=== PATIENT | female | born 1930 | race Caucasian/White ===

== ENCOUNTER 2016-11-06 16:24 | Outpatient (CLI) | payer MEDICARE, BC | END 2016-11-06 16:25 | disposition home or self-care (01) | DX: M19.032 Primary osteoarthritis, left wrist (principal) ==

== ENCOUNTER 2016-12-01 09:07 | Outpatient (CLI) | payer MEDICARE, BC | END 2016-12-01 09:08 | disposition EMS.NT | DX: Z03.89 Encounter for observation for other suspected diseases and conditions ruled out (principal); W19.XXXA Unspecified fall, initial encounter; Y92.10 Unspecified residential institution as the place of occurrence of the external cause ==

== ENCOUNTER 2017-02-09 11:08 | Outpatient (CLI) | payer MEDICARE, BC ==
[2017-02-09 18:07] LABS: BASOPHILS % (AUTO) 0.5 %; EOSINOPHILS # (AUTO) 0.2 10^3/uL (0.0-0.7); EOSINOPHILS % (AUTO) 3.3 %; HCT - HEMATOCRIT 35.1 % (37.0-47.0); LYMPHOCYTES # (AUTO) 3.1 10^3/uL (1.5-3.5); LYMPHOCYTES % (AUTO) 46.6 %; MEAN CORPUSCULAR HEMOGLOBIN 31.3 pg (27.0-31.0); MEAN CORPUSCULAR HGB CONC 34.3 g/dL (32.0-36.0); MEAN CORPUSCULAR VOLUME 91.3 fL (81.0-99.0); MEAN PLATELET VOLUME 10.1 fL (7.9-10.8); MONOCYTES # (AUTO) 0.5 10^3/uL (0.0-1.0); MONOCYTES % (AUTO) 7.7 %; NEUTROPHILS # (AUTO) 2.8 10^3/uL (1.5-6.6); NEUTROPHILS % (AUTO) 41.9 %; NUCLEATED RED BLOOD CELLS AUTO 0.1 /100WBC; RED BLOOD COUNT 3.84 10^6/uL (4.20-5.40); RED CELL DISTRIBUTION WIDTH 13.2 % (12.0-15.0); UNCORRECTED WHITE BLOOD COUNT 6.6 x10^3/uL; WHITE BLOOD COUNT 6.6 x10^3/uL (4.8-10.8)
[2017-02-09 18:34] LABS: ALBUMIN/GLOBULIN RATIO 1.3 (1.0-2.2); BILIRUBIN,TOTAL 0.8 mg/dL (0.2-1.0); CALCIUM 9.3 mg/dL (8.5-10.3); CREATININE 1.1 mg/dL (0.4-1.0); TOTAL PROTEIN 7.4 g/dL (6.7-8.2)
[2017-02-09 19:49] LABS: PLATELET ESTIMATE, MANUAL NORMAL (130-450,000) (NORMAL); PLATELET MORPHOLOGY NORMAL APPEARANCE (NORMAL)
== END 2017-02-09 11:09 | disposition home or self-care (01) ==
LOC: LAB.F 11:08
PROVIDERS: ATTEND Internal Medicine
DX: C95.10 Chronic leukemia of unspecified cell type not having achieved remission (principal); R06.2 Wheezing; R60.0 Localized edema
CPT/HCPCS: 36415; 80053; 83880; 85025

== ENCOUNTER 2017-03-28 13:40 | Outpatient (CLI) | payer MEDICARE, BC | END 2017-03-28 13:41 | disposition EMS.NT | LOC: EMS 13:40 | PROVIDERS: ATTEND Surgery | DX: S09.93XA Unspecified injury of face, initial encounter (principal); W01.198A Fall on same level from slipping, tripping and stumbling with subsequent striking against other object, initial encounter; Y92.009 Unspecified place in unspecified non-institutional (private) residence as the place of occurrence of the external cause ==

== ENCOUNTER 2017-05-14 19:55 | Outpatient (CLI) | payer MEDICARE, BC | END 2017-05-14 19:56 | disposition EMS.NT | LOC: EMS 19:55 | PROVIDERS: ATTEND Surgery | DX: Z03.89 Encounter for observation for other suspected diseases and conditions ruled out (principal); W18.39XA Other fall on same level, initial encounter; Y92.099 Unspecified place in other non-institutional residence as the place of occurrence of the external cause ==

== ENCOUNTER 2017-05-23 10:12 | Outpatient (CLI) | payer MEDICARE, BC ==
--- NOTE | 2017-05-23 13:54 | XRAY Report ---
EXAM: LEFT FOOT RADIOGRAPHY EXAM DATE: 05/23/2017 10:54 AM. CLINICAL HISTORY: Fall with pain and bruising. COMPARISON: None. TECHNIQUE: 3 views. FINDINGS: Bones: Nondisplaced oblique fractures of the fourth and fifth metatarsal shafts. Old healed deformity of the distal fourth metatarsal, likely from remote prior trauma. Osteopenia. Joints: No dislocation. Degenerative changes at the first metatarsophalangeal joint. Soft Tissues: Soft tissue swelling adjacent to the fifth metatarsal. IMPRESSION: Nondisplaced oblique fractures of the fourth and fifth metatarsal shafts. [facility] Referring Provider Line: [phone] SITE ID: [id number]
--- NOTE | 2017-05-23 14:10 | XRAY Report ---
EXAM: LEFT HAND RADIOGRAPHY EXAM DATE: 05/23/2017 10:55 AM. CLINICAL HISTORY: Fall with pain and bruising. COMPARISON: None. TECHNIQUE: 3 views. FINDINGS: Bones: There is a nondisplaced fracture at the base of the fifth metacarpal. No additional fractures or dislocations are seen, noting that a ring obscures visualization of a portion of the proximal phal anx of the fourth finger. Joints: No dislocation. 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 Soft Tissues: Soft tissue swelling adjacent to the fifth metacarpal. IMPRESSION: Nondisplaced fracture at the base of the fifth metacarpal. [facility] Referring Provider Line: [phone] SITE ID: [id number]
--- NOTE | 2017-05-23 14:11 | XRAY Report ---
EXAM: LEFT WRIST RADIOGRAPHY EXAM DATE: 05/23/2017 10:55 AM. CLINICAL HISTORY: Fall with pain and bruising. COMPARISON: None. TECHNIQUE: 4 views. FINDINGS: Bones: There is a nondisplaced fracture at the base of the fifth metacarpal. No additional fractures. Joints: No dislocation. Narrowing of the radiocarpal articulation. Soft Tissues: Soft tissue swelling adjacent to the fifth metacarpal. IMPRESSION: Nondisplaced fracture of the base of the fifth metacarpal. [facility] Referring Provider Line: [phone] SITE ID: [id number]
--- NOTE | 2017-05-24 01:10 | XRAY Report ---
EXAM: LEFT ANKLE RADIOGRAPHY EXAM DATE: 05/23/2017 10:53 AM. CLINICAL HISTORY: Fall with pain and bruising. COMPARISON: None. TECHNIQUE: 3 views. FINDINGS: Bones: No fractures or bone lesions. Joints: Normal. No effusion. No subluxations. The ankle mortise is normally aligned. Soft Tissues: Diffuse ankle soft tissue swelling. Calcaneal bone spurs. IMPRESSION: 1. No evidence for acute fracture. 2. Diffuse ankle soft tissue swelling. [facility] Referring Provider Line: [phone] SITE ID: [id number]
== END 2017-05-23 10:13 | disposition home or self-care (01) ==
LOC: DI 10:12
PROVIDERS: ATTEND Internal Medicine
DX: S92.345A Nondisplaced fracture of fourth metatarsal bone, left foot, initial encounter for closed fracture (principal); S92.355A Nondisplaced fracture of fifth metatarsal bone, left foot, initial encounter for closed fracture; S62.347A Nondisplaced fracture of base of fifth metacarpal bone, left hand, initial encounter for closed fracture; M79.89 Other specified soft tissue disorders

== ENCOUNTER 2017-10-05 04:04 | Outpatient (CLI) | payer MEDICARE, BC | END 2017-10-05 04:05 | disposition critical access hospital (66) | LOC: EMS 04:04 | PROVIDERS: ATTEND Surgery | DX: S09.90XA Unspecified injury of head, initial encounter (principal); R53.1 Weakness; W06.XXXA Fall from bed, initial encounter; Y92.092 Bedroom in other non-institutional residence as the place of occurrence of the external cause | CPT/HCPCS: A0425; A0429 ==

== ENCOUNTER 2017-10-05 04:31 | Emergency (ER) | payer MEDICARE, BC ==
--- NOTE | 2017-10-05 05:06 | ED Physician Documentation ---
PD HPI Fall - Stated complaint Stated Complaint: GLF - Chief complaint Chief Complaint: Trauma Ch/Bk - History obtained from History obtained from: Patient, EMS - History of Present Illness Mechanism of injury: Lost balance Fall distance: Standing position Where injury occurred: Home Timing - onset: How many hours ago (1) Injury(ies) location: Head Associated symptoms: No: LOC, AMS, Neck pain, Nausea / vomiting - Additional information Additional information: The patient is an 87-year-old female who arrives via ambulance from [facility] where she fell getting out of bed about one hour prior to arrival. She landed on her buttocks, and hit the occipital region of her head on the bed frame. She denies loss of consciousness, and denies headache or neck pain. She denies nausea or vomiting. She denies chest pain or shortness of breath. She has a history of atrial fibrillation, but is not on anticoagulant medication. She normally uses a walker to assist with ambulation. Review of Systems Constitutional: denies: Fever Eyes: denies: Decreased vision Ears: denies: Tinnitus/ringing Nose: denies: Congestion Throat: denies: Sore throat Cardiac: denies: Chest pain / pressure, Palpitations Respiratory: denies: Dyspnea, Cough GI: denies: Abdominal Pain, Nausea, Vomiting : denies: Dysuria Skin: denies: Rash, Laceration (s) Musculoskeletal: denies: Neck pain, Back pain, Extremity pain Neurologic: reports: Head injury (Occipital scalp.). denies: Focal weakness, Numbness, Altered mental status, Headache, LOC PD PAST MEDICAL HISTORY - Past Medical History Past Medical History: Yes Cardiovascular: Atrial fibrillation Endocrine/Autoimmune: None Psych: Depression Musculoskeletal: Osteoporosis Other Past Medical History: RLS, edema to LE's - Past Surgical History Past Surgical History: Yes Ortho: Knee replacement - Present Medications Home Medications: Ambulatory Orders Medication Instructions Recorded Confirmed Calcium Carbonate/Vitamin D3 1 tab PO DAILY 10/05/17 10/05/17 [Calcium 600-Vit D3 400 Tablet] Docusate Sodium 1 cap PO DAILY 10/05/17 10/05/17 Fluoxetine HCl 1 cap PO DAILY 10/05/17 10/05/17 Gabapentin 1 tab PO BID 10/05/17 10/05/17 Gabapentin 600 mg PO DAILY 10/05/17 10/05/17 HYDROcod/ACETAM 5/325 [[place] 5/325] 0.5 tab PO BID 10/05/17 10/05/17 Metoprolol Succinate 25 mg PO DAILY 10/05/17 10/05/17 Multivitamin [Multivitamins] 1 cap PO DAILY 10/05/17 10/05/17 Ropinirole HCl 1 tab PO BID 10/05/17 10/05/17 diltiaZEM [Cardizem] 1 tab PO TID 10/05/17 10/05/17 - Allergies Allergies/Adverse Reactions: Allergies Allergy/AdvReac Type Severity Reaction Status Date / Time No Known Drug Allergies Allergy Verified 10/05/17 05:05 - Living Situation Living Arrangement: reports: Assisted living - Social History Does the pt smoke?: No Smoking Status: Never smoker Does the pt drink ETOH?: No Does the pt have substance abuse?: No - POLST Patient has POLST: Yes PD ED PE NORMAL - Vitals Vital signs reviewed: Yes (Initially hypertensive.) - General General: Alert and oriented X 3, Well developed/nourished - HEENT HEENT: PERRL, EOMI, Ears normal, Pharynx benign, Other (There is a small area of ecchymosis on the left occipital scalp. There is no break in the integument , and no bony step-off palpated.) - Neck Neck: No bony TTP, No adenopathy, No JVD - Cardiac Cardiac: RRR, Other (1/6 systolic murmur.) - Respiratory Respiratory: No respiratory distress, Clear bilaterally - Abdomen Abdomen: Soft, Non tender - Back Back: No spinal TTP - Derm Derm: No rash - Extremities Extremities: No calf tenderness / cord, Other (One plus pedal edema bilaterally. ) - Neuro Neuro: Alert and oriented X 3, No motor deficit, No sensory deficit Eye Opening: Spontaneous Motor: Obeys Commands Verbal: Oriented GCS Score: 15 Results - Vitals Vitals: Oxygen O2 Source Room air - EKG (time done) 04:43 Rate: Rate (enter#) (56) Rhythm: NSR [place]: Normal Intervals: Other (short [place] interval.) QRS: LVH Ischemia: Normal ST segments Computer interpretation: Agree with computer - Labs Labs: Laboratory Tests 10/05/17 10/05/17 10/05/17 05:10 05:15 05:15 WBC 7.2 RBC 3.56 L Hgb 11.3 L Hct 32.9 L MCV 92.5 MCH 31.6 H MCHC 34.2 RDW 13.6 Plt Count 178 MPV 9.6 Neut # Not Reportable Lymph # Not Reportable Terrell # Not Reportable Eos # Not Reportable Baso # Not Reportable Absolute Nucleated RBC Not Reportable Total Counted 100 Band Neuts % (Manual) 0 Reactive Lymphs % (Man) 16 Abnorm Lymph % (Manual) 0 Nucleated RBC % Not Reportable Neutrophils # (Manual) 2.6 Lymphocytes # (Manual) 4.1 H Monocytes # (Manual) 0.3 Eosinophils # (Manual) 0.2 Basophils # (Manual) 0.0 Differential Comment MANUAL DIFFERENTIAL Platelet Estimate NORMAL (130-450,000) Platelet Morphology 1+ LARGE PLATELETS RBC Morph Micro Appear NORMAL APPEARANCE Sodium 139 Potassium 3.8 Chloride 100 L Carbon Dioxide 26 Anion Gap 13.0 BUN 18 Creatinine 1.0 Estimated GFR (MDRD) 52 L Glucose 103 H Calcium 9.3 Total Bilirubin 0.9 AST 27 ALT 19 Alkaline Phosphatase 43 Troponin I Total Protein 7.2 Albumin 4.1 Globulin 3.1 Albumin/Globulin Ratio 1.3 Lipase 20 L Urine Color YELLOW Urine Clarity CLEAR Urine pH 6.0 Ur Specific [place] 1.020 Urine Protein NEGATIVE Urine Glucose (UA) NEGATIVE Urine Ketones NEGATIVE Urine Occult Blood NEGATIVE Urine Nitrite NEGATIVE Urine Bilirubin NEGATIVE Urine Urobilinogen 0.2 (NORMAL) Ur Leukocyte Esterase NEGATIVE Ur Microscopic Review NOT INDICATED Urine Culture Comments NOT INDICATED 10/05/17 05:15 WBC RBC Hgb Hct MCV MCH MCHC RDW Plt Count MPV Neut # Lymph # [place] # Eos # Baso # Absolute Nucleated RBC Total Counted Band Neuts % (Manual) Reactive Lymphs % (Man) Abnorm Lymph % (Manual) Nucleated RBC % Neutrophils # (Manual) Lymphocytes # (Manual) Monocytes # (Manual) Eosinophils # (Manual) Basophils # (Manual) Differential Comment Platelet Estimate Platelet Morphology RBC Morph Micro Appear Sodium Potassium Chloride Carbon Dioxide Anion Gap BUN Creatinine Estimated GFR (MDRD) Glucose Calcium Total Bilirubin AST ALT Alkaline Phosphatase Troponin I < 0.04 Total Protein Albumin Globulin Albumin/Globulin Ratio Lipase Urine Color Urine Clarity Urine pH Ur Specific [place] Urine Protein Urine Glucose (UA) Urine Ketones Urine Occult Blood Urine Nitrite Urine Bilirubin Urine Urobilinogen Ur Leukocyte Esterase Ur Microscopic Review Urine Culture Comments - Rads (name of study) Head CT w/o Radiology: Prelim report reviewed, EMP read contemporaneously, See rad report ( Age-related atrophic changes, without acute intracranial abnormality.) CT Cervical Spine Radiology: Prelim report reviewed, EMP read contemporaneously, See rad report ( No sign of cervical spine fracture.) PD MEDICAL DECISION MAKING - ED course Complexity details: reviewed old records, reviewed results, re-evaluated patient , considered differential, d/w patient ED course: The patient's presentation is significant for a fall with an occipital scalp contusion. Head CT reveals no evidence of intracranial abnormality, and CT of the cervical spine reveals no evidence of cervical spine fracture. CBC, chemistry panel, and urinalysis are unremarkable. Electrocardiogram reveals normal sinus rhythm without ischemic abnormalities, and troponin is normal. Following the above treatment, the patient demonstrated ability to ambulate in the hallway with the assistance of a walker. I discussed with her the results of her workup, the expected course of healing, symptomatic treatment and outpatient follow-up, as well as potentially worrisome signs or symptoms that should prompt reevaluation in the emergency department. Departure - Departure Disposition: 01 Home, Self Care Clinical Impression: Fall Qualifiers: Encounter type: initial encounter Qualified Code(s): W19.XXXA - Unspecified fall, initial encounter Scalp contusion Qualifiers: Encounter type: initial encounter Qualified Code(s): S00.03XA - Contusion of scalp, initial encounter Condition: Stable Instructions: ED Contusion Scalp Follow-Up: YUMIKO SWENSON MD [Physician No Access] - Comments: You can use Tylenol as needed for discomfort. Follow up with your primary physician within 1-2 weeks if not completely resolved. Return to the emergency department if increasing headache, persistent vomiting, or otherwise worsening symptoms. Discharge Date/Time: 10/05/17 09:41
[2017-10-05 05:17] LABS: BILIRUBIN,URINE NEGATIVE (NEGATIVE); GLUCOSE, URINE (UA) NEGATIVE (NEGATIVE); KETONES,URINE (UA) NEGATIVE (NEGATIVE); LEUKOCYTE ESTERASE, URINE NEGATIVE (NEGATIVE); NITRITE,URINE NEGATIVE (NEGATIVE); OCCULT BLOOD,URINE NEGATIVE (NEGATIVE); PROTEIN,URINE NEGATIVE (NEGATIVE); UROBILINOGEN,URINE 0.2 (NORMAL) E.U./dL (NORMAL)
[2017-10-05 05:23] LABS: BASOPHILS % (AUTO) 0.4 %; EOSINOPHILS % (AUTO) 2.6 %; HGB - HEMOGLOBIN 11.3 g/dL (12.0-16.0); LYMPHOCYTES % (AUTO) 49.3 %; MEAN CORPUSCULAR HEMOGLOBIN 31.6 pg (27.0-31.0); MEAN CORPUSCULAR HGB CONC 34.2 g/dL (32.0-36.0); MEAN CORPUSCULAR VOLUME 92.5 fL (81.0-99.0); MEAN PLATELET VOLUME 9.6 fL (7.9-10.8); MONOCYTES % (AUTO) 6.4 %; NEUTROPHILS % (AUTO) 41.3 %; PLT - PLATELET COUNT 178 10^3/uL (130-450); RED BLOOD COUNT 3.56 10^6/uL (4.20-5.40); RED CELL DISTRIBUTION WIDTH 13.6 % (12.0-15.0); WHITE BLOOD COUNT 7.2 x10^3/uL (4.8-10.8)
[2017-10-05 05:24] LABS: CLARITY,URINE CLEAR (CLEAR)
[2017-10-05 05:25] LABS: ABNORMAL LYMPHS % (MANUAL) 0 %; BAND NEUTROPHILS % (MANUAL) 0 %
[2017-10-05 05:36] LABS: ALBUMIN 4.1 g/dL (3.2-5.5); ALBUMIN/GLOBULIN RATIO 1.3 (1.0-2.2); BILIRUBIN,TOTAL 0.9 mg/dL (0.2-1.0); CALCIUM 9.3 mg/dL (8.5-10.3); TOTAL PROTEIN 7.2 g/dL (6.7-8.2)
[2017-10-05 05:46] LABS: EOSINOPHILS # (MANUAL) 0.2 10^3/uL (0-0.7); LYMPHOCYTES # (MANUAL) 4.1 10^3/uL (1.5-3.5); LYMPHOCYTES % (MANUAL) 41 %; MONOCYTES # (MANUAL) 0.3 10^3/uL (0.0-1.0); NEUTROPHILS # (MANUAL) 2.6 10^3/uL (1.5-6.6); NEUTROPHILS % (MANUAL) 36 %
[2017-10-05 05:47] LABS: DIFFERENTIAL COMMENT MANUAL DIFFERENTIAL; PLATELET ESTIMATE, MANUAL NORMAL (130-450,000) (NORMAL); PLATELET MORPHOLOGY 1+ LARGE PLATELETS (NORMAL); RBC MORPHOLOGY (MULTIPLE) NORMAL APPEARANCE (NORMAL)
--- NOTE | 2017-10-05 06:02 | CT Preliminary Report ---
Exam: CT HEAD W/O IMPRESSION: Generalized age-related cortical atrophic changes without evidence of acute intracranial abnormality. [facility] SITE ID: [id number]
--- NOTE | 2017-10-05 06:02 | CT Report ---
EXAM: CT HEAD EXAM DATE: 10/05/2017. CLINICAL HISTORY: Fall, head trauma COMPARISON: 05/06/2016. TECHNIQUE: Multiaxial CT images were obtained from the foramen magnum to the vertex. Reformats: Coron al. IV contrast: None. In accordance with CT protocol optimization, one or more of the following dose reduction techniques w ere utilized for this exam: automated exposure control, adjustment of mA and/or KV based on patient s ize, or use of iterative reconstructive technique. FINDINGS: Parenchyma: No intraparenchymal hemorrhage. No evidence of mass, midline shift, or CT findings of acu te infarction. [place]-white differentiation is distinct. Diffuse chronic microangiopathic white matter changes are evident. Extraaxial Spaces: Normal for age. No subdural or epidural collections identified. Ventricles: The ventricles and cortical sulci are enlarged, consistent with age-related tissue loss. Sinuses and orbits: Imaged paranasal sinuses, orbits, and mastoids show no significant abnormality. Bones: No evidence of fracture or calvarial defect. Other: There is a posterior scalp hematoma. IMPRESSION: Generalized age-related cortical atrophic changes without evidence of acute intracranial abnormality. [facility] Referring Provider Line: [phone] SITE ID: [id number]
--- NOTE | 2017-10-05 06:11 | CT Report ---
EXAM: CT CERVICAL SPINE WITHOUT CONTRAST DATE: 10/05/2017 05:44 AM. HISTORY: Fall onto head with right neck pain. COMPARISONS: Plain film radiographs 05/06/2016. TECHNIQUE: Thin-section axial images were acquired of the cervical spine without contrast. Post-proce ssing: Coronal and sagittal reformats. Other: None. In accordance with CT protocol optimization, one or more of the following dose reduction techniques w ere utilized for this exam: automated exposure control, adjustment of mA and/or KV based on patient s ize, or use of iterative reconstructive technique. FINDINGS: Alignment: There is 2 mm anterolisthesis of C4 on C5. There is 2 mm anterolisthesis of C7 on T1. Bones: No fracture or bone lesion. Interspace Levels/Facets: C1-C2: Moderate degenerative changes involving lateral masses. C2-C3: There is moderate right facet hypertrophy. No central canal or neural foraminal narrowing. C3-C4: There is moderate right facet hypertrophy. There is moderate right neural foraminal narrowing. C4-C5: There is mild right and moderate left facet hypertrophy. There is 2 mm anterolisthesis of C4 o n C5. There is moderate left neural foraminal narrowing. C5-C6: There is disk height loss without central canal narrowing. There is mild bilateral neural fora naman narrowing. C6-C7: There is disk height loss. There is a disk osteophyte complex without central canal narrowing. There is mild bilateral neural foraminal narrowing. C7-T1: There is moderate bilateral facet hypertrophy with mild bilateral neural foraminal narrowing. Musculature: Normal. No fatty atrophy. Other: The paravertebral and prevertebral soft tissues are unremarkable. The lung apices are clear. IMPRESSION: No evidence of cervical spine fracture. [facility] Referring Provider Line: [phone] SITE ID: [id number]
--- NOTE | 2017-10-05 06:11 | CT Preliminary Report ---
Exam: CT CERVICAL SPINE W/O IMPRESSION: No evidence of cervical spine fracture. [facility] SITE ID: [id number]
[2017-10-05 06:30] VITALS: BP 156/55
== END 2017-10-05 09:41 | disposition home or self-care (01) ==
LOC: EDUNIT# → ED 04:31
DX: S00.03XA Contusion of scalp, initial encounter (principal); W01.190A Fall on same level from slipping, tripping and stumbling with subsequent striking against furniture, initial encounter; Y92.013 Bedroom of single-family (private) house as the place of occurrence of the external cause; I48.91 Unspecified atrial fibrillation; M81.0 Age-related osteoporosis without current pathological fracture
CPT/HCPCS: 36415; 51701; 70450; 72125; 80053; 81001; 81003; 83690; 84484; 85025; 87086; 93005; 99283; 99284

== ENCOUNTER 2018-03-16 07:30 | Outpatient (CLI) | payer MEDICARE, BC | END 2018-03-16 07:31 | disposition critical access hospital (66) | LOC: EMS 07:30 | PROVIDERS: ATTEND Surgery | DX: R53.1 Weakness (principal) | CPT/HCPCS: A0425; A0429 ==

== ENCOUNTER 2018-03-16 07:57 | Emergency (ER) | payer MEDICARE, BC ==
--- NOTE | 2018-03-16 08:54 | ED Physician Documentation ---
History of Present Illness - Stated complaint Stated Complaint: WEAKNESS - Chief complaint Chief Complaint: Neuro - History obtained from History obtained from: Patient - History of Present Illness Timing: Today - Additonal information Additional information: 87-year-old female with a history of hypertension and afib not on anticoagulation has developed weakness. She is unable to get up out of her recliner this morning. She states that recently she will have some difficulty getting out and sometimes requires help today she was particularly weak. She will sometimes get help to go down to the dining room in a wheelchair. She usually uses a walker. She is unaware of any specifics regarding the murmur. Review of Systems Constitutional: reports: Fatigue. denies: Fever, Chills, Myalgias Eyes: denies: Decreased vision Ears: denies: Ear pain Nose: denies: Rhinorrhea / runny nose, Congestion Throat: denies: Sore throat Cardiac: denies: Chest pain / pressure, Palpitations Respiratory: denies: Dyspnea, Cough GI: denies: Abdominal Pain, Nausea, Vomiting, Constipation, Diarrhea : denies: Dysuria, Frequency Skin: denies: Rash Musculoskeletal: denies: Neck pain, Back pain, Extremity pain Neurologic: reports: Generalized weakness. denies: Focal weakness, Numbness, Confused, Headache, Head injury, LOC PD PAST MEDICAL HISTORY - Past Medical History Cardiovascular: Atrial fibrillation Endocrine/Autoimmune: None Psych: Depression Musculoskeletal: Osteoporosis - Past Surgical History Past Surgical History: Yes Ortho: Knee replacement /[employer]: section - Present Medications Home Medications: Ambulatory Orders Medication Instructions Recorded Confirmed Calcium Carbonate/Vitamin D3 1 tab PO DAILY 10/05/17 10/05/17 [Calcium 600-Vit D3 400 Tablet] Docusate Sodium 1 cap PO DAILY 10/05/17 10/05/17 Fluoxetine HCl 1 cap PO DAILY 10/05/17 10/05/17 Gabapentin 1 tab PO BID 10/05/17 10/05/17 Gabapentin 600 mg PO DAILY 10/05/17 10/05/17 HYDROcod/ACETAM 5/325 [[place] 5/325] 0.5 tab PO BID 10/05/17 10/05/17 Metoprolol Succinate 25 mg PO DAILY 10/05/17 10/05/17 Multivitamin [Multivitamins] 1 cap PO DAILY 10/05/17 10/05/17 Ropinirole HCl 1 tab PO BID 10/05/17 10/05/17 diltiaZEM [Cardizem] 1 tab PO TID 10/05/17 10/05/17 Carbidopa/Levodopa 0.5 tab PO TID #30 tablet 03/16/18 [Carbidopa-Levodopa 25-100 Tab] - Allergies Allergies/Adverse Reactions: Allergies Allergy/AdvReac Type Severity Reaction Status Date / Time No Known Drug Allergies Allergy Verified 10/05/17 05:05 - Social History Does the pt smoke?: No Smoking Status: Never smoker Does the pt drink ETOH?: No Does the pt have substance abuse?: No - Immunizations Immunizations: Other immun current - POLST Patient has POLST: Yes PD ED PE NORMAL - Vitals Vital signs reviewed: Yes (hypertensive with wide pulse pressure) - General General: Alert and oriented X 3, No acute distress, Well developed/nourished, Other (There is the sad masked facies of Parkinsons ) - HEENT HEENT: Atraumatic, PERRL, EOMI - Neck Neck: Supple, no meningeal sign, No bony TTP - Cardiac Cardiac: RRR, Other (3/6 holosystolic murmer at LSB ) - Respiratory Respiratory: No respiratory distress, Clear bilaterally - Abdomen Abdomen: Soft, Non tender - Back Back: No CVA TTP, No spinal TTP - Derm Derm: Normal color, Warm and dry, No rash - Extremities Extremities: No deformity, No edema - Neuro Neuro: Alert and oriented X 3, 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 There is more profound rigidity to the LE bilaterally. There is a tremor present and finger to thumb movements are jerky and slow. There is stiffening of the neck. ) Eye Opening: Spontaneous Motor: Obeys Commands Verbal: Oriented GCS Score: 15 - Psych Psych: Normal mood, Normal affect Results - Vitals Vitals: Vital Signs - 24 hr 03/16/18 03/16/18 03/16/18 08:00 09:57 11:19 Temperature 36.3 C L 36.4 C L Heart Rate 60 55 L 56 L Respiratory 16 16 17 Rate Blood Pressure 154/54 H 134/70 H 147/54 H O2 Saturation 96 96 97 03/16/18 13:32 Temperature Heart Rate 60 Respiratory 15 Rate Blood Pressure 170/51 H O2 Saturation 97 Oxygen O2 Source Room air - EKG (time done) 0858 Rate: Rate (enter#) (56) Rhythm: NSR Intervals: Prolonged VA QRS: LVH Compare to prior EKG: Changed from prior EKG (SPT10-05-17 VA interval has increased) Computer interpretation: Agree with computer - Labs Labs: Laboratory Tests 03/16/18 03/16/18 03/16/18 08:15 08:15 08:15 WBC 6.6 RBC 3.74 L Hgb 11.8 L Hct 34.8 L MCV 93.1 MCH 31.5 H MCHC 33.8 RDW 13.8 Plt Count 189 MPV 10.6 Neut # (Auto) 2.6 Lymph # (Auto) 3.4 [place] # (Auto) 0.4 Eos # (Auto) 0.2 Baso # (Auto) 0.0 Absolute Nucleated RBC 0.01 Nucleated RBC % 0.1 Sodium 139 Potassium 3.7 Chloride 104 Carbon Dioxide 26 Anion Gap 9.0 BUN 17 Creatinine 1.0 Estimated GFR (MDRD) 52 L Glucose 116 H Calcium 8.9 Total Bilirubin 1.3 H AST 42 ALT 18 Alkaline Phosphatase 48 Troponin I 0.06 Total Protein 6.9 Albumin 3.5 Globulin 3.4 Albumin/Globulin Ratio 1.0 Lipase 23 Urine Color Urine Clarity Urine pH Ur Specific [place] Urine Protein Urine Glucose (UA) Urine Ketones Urine Occult Blood Urine Nitrite Urine Bilirubin Urine Urobilinogen Ur Leukocyte Esterase Ur Microscopic Review Urine Culture Comments 03/16/18 08:45 WBC RBC Hgb Hct MCV MCH MCHC RDW Plt Count MPV Neut # (Auto) Lymph # (Auto) [place] # (Auto) Eos # (Auto) Baso # (Auto) Absolute Nucleated RBC Nucleated RBC % Sodium Potassium Chloride Carbon Dioxide Anion Gap BUN Creatinine Estimated GFR (MDRD) Glucose Calcium Total Bilirubin AST ALT Alkaline Phosphatase Troponin I Total Protein Albumin Globulin Albumin/Globulin Ratio Lipase Urine Color YELLOW Urine Clarity CLEAR Urine pH 7.0 Ur Specific [place] 1.010 Urine Protein NEGATIVE Urine Glucose (UA) NEGATIVE Urine Ketones NEGATIVE Urine Occult Blood NEGATIVE Urine Nitrite NEGATIVE Urine Bilirubin NEGATIVE Urine Urobilinogen 1 (NORMAL) Ur Leukocyte Esterase NEGATIVE Ur Microscopic Review NOT INDICATED Urine Culture Comments NOT INDICATED - Rads (name of study) 2 veiw chest Radiology: Prelim report reviewed (Impression: 1. Enlarged cardiac silhouette could be due to cardiomegaly, pericardial effusion or magnification from AP technique. No focal consolidation evident.), EMP read indepedently, See rad report Procedures - IVC sono (time) 0840 Bedside IVC sono: IVC measures (cm) (1.35), IVC collapsed c insp (cm) (0.81), Dehydration (minimal at est<0.5liter) PD MEDICAL DECISION MAKING - ED course Complexity details: reviewed results, re-evaluated patient, considered differential, d/w patient ED course: 87-year-old female with a murmur of aortic stenosis has developed weakness. She is minimally dehydrated and is given intravenous saline. This helps some but it is apparent the patient is nearly frozen in her parkinson like state and she is administered PO carbadopa levadopa. This takes some time to be effective and is most notable in the upper ext bilaterally with smoothing and of the gross movements and she is now able to perform finger to thumb rapidly bilaterally. There is more facial expression present. She is able to stand but with a shuffling gait and with assistance. She has had a rapid decline in the last week after a decline more slowly over the past several years. She appears to have some form of Parkinson's and I am saying the improvement with the carbidopa/levadopa is positive and we will start her on a dose regularly and have her follow up with her PMD in [place]. - Sepsis Event Vital Signs: Vital Signs - 24 hr 03/16/18 03/16/18 03/16/18 08:00 09:57 11:19 Temperature 36.3 C L 36.4 C L Heart Rate 60 55 L 56 L Respiratory 16 16 17 Rate Blood Pressure 154/54 H 134/70 H 147/54 H O2 Saturation 96 96 97 03/16/18 13:32 Temperature Heart Rate 60 Respiratory 15 Rate Blood Pressure 170/51 H O2 Saturation 97 Oxygen O2 Source Room air Departure - Departure Disposition: 01 Home, Self Care Clinical Impression: Parkinson's disease Condition: Stable Instructions: Parkinson Disease Dc Follow-Up: Your, doctor [Other] Prescriptions: Carbidopa/Levodopa [Carbidopa-Levodopa 25-100 Tab] 0.5 tab PO TID #30 tablet Comments: Today it looks like you have Parkinson's and we have initiated treatment with a low dose of Carbidopa/levadopa. You will need to increase this medication eventually. Follow up with your primary care doctor for further evaluation and referral to a neurologist.
[2018-03-16] MEDS ORDERED: SODIUM CHLORIDE 0.9% 1,000 ML IV ONE (08:56)
[2018-03-16 08:58] LABS: BASOPHILS % (AUTO) 0.6 %; EOSINOPHILS # (AUTO) 0.2 10^3/uL (0.0-0.7); EOSINOPHILS % (AUTO) 2.7 %; HGB - HEMOGLOBIN 11.8 g/dL (12.0-16.0); LYMPHOCYTES # (AUTO) 3.4 10^3/uL (1.5-3.5); LYMPHOCYTES % (AUTO) 51.3 %; MEAN CORPUSCULAR HEMOGLOBIN 31.5 pg (27.0-31.0); MEAN CORPUSCULAR HGB CONC 33.8 g/dL (32.0-36.0); MEAN CORPUSCULAR VOLUME 93.1 fL (81.0-99.0); MEAN PLATELET VOLUME 10.6 fL (7.9-10.8); MONOCYTES # (AUTO) 0.4 10^3/uL (0.0-1.0); MONOCYTES % (AUTO) 6.6 %; NEUTROPHILS # (AUTO) 2.6 10^3/uL (1.5-6.6); NEUTROPHILS % (AUTO) 38.8 %; PLT - PLATELET COUNT 189 10^3/uL (130-450); RED BLOOD COUNT 3.74 10^6/uL (4.20-5.40); RED CELL DISTRIBUTION WIDTH 13.8 % (12.0-15.0); WHITE BLOOD COUNT 6.6 x10^3/uL (4.8-10.8)
[2018-03-16 09:14] LABS: ALBUMIN 3.5 g/dL (3.2-5.5); BILIRUBIN,TOTAL 1.3 mg/dL (0.2-1.0); CALCIUM 8.9 mg/dL (8.5-10.3); TOTAL PROTEIN 6.9 g/dL (6.7-8.2)
--- NOTE | 2018-03-16 09:33 | XRAY Report ---
Procedure Date: 03/16/2018 Accession Number: [id number] / [id number] Procedure: XR - Chest 2 View X-Ray CPT Code: 06826 FULL RESULT: EXAM: CHEST RADIOGRAPHY EXAM DATE: 03/16/2018 09:14 AM. CLINICAL HISTORY: Weakness. COMPARISON: CHEST 2 VIEW PA/LAT 05/06/2016. TECHNIQUE: 2 views. FINDINGS: Lungs/Pleura: No focal opacities evident. No pleural effusion. No pneumothorax. Normal volumes. Mediastinum: Enlarged cardiac silhouette. Other: Right glenohumeral joint degenerative changes. Diffuse osteopenia. Prior midthoracic spine compression fracture with [id number] anterior wedging. IMPRESSION: 1. Enlarged cardiac silhouette could be due to cardiomegaly, pericardial effusion or magnification from AP technique. 2. No focal consolidation evident. [facility]
[2018-03-16 12:00] LABS: BILIRUBIN,URINE NEGATIVE (NEGATIVE); GLUCOSE, URINE (UA) NEGATIVE (NEGATIVE); KETONES,URINE (UA) NEGATIVE (NEGATIVE); LEUKOCYTE ESTERASE, URINE NEGATIVE (NEGATIVE); NITRITE,URINE NEGATIVE (NEGATIVE); OCCULT BLOOD,URINE NEGATIVE (NEGATIVE); PROTEIN,URINE NEGATIVE (NEGATIVE); UROBILINOGEN,URINE 1 (NORMAL) E.U./dL (NORMAL)
[2018-03-16 12:03] LABS: CLARITY,URINE CLEAR (CLEAR)
[2018-03-16] MEDS ORDERED: CARBIDOPA/LEVODOPA 25 MG/250 MG TABLET PO STA (13:07)
[2018-03-16 13:32] VITALS: BP 170/51
== END 2018-03-16 16:00 | disposition home or self-care (01) ==
LOC: EDUNIT# → ED 07:57
DX: G20 Parkinson's disease (principal); E86.0 Dehydration; R94.31 Abnormal electrocardiogram [ECG] [EKG]; I35.0 Nonrheumatic aortic (valve) stenosis; I10 Essential (primary) hypertension
CPT/HCPCS: 36415; 71046; 80053; 81003; 83690; 84484; 85025; 93005; 96360; 99284; A9270; 81001; 87086

== ENCOUNTER 2018-08-27 11:11 | Outpatient (CLI) | payer MEDICARE, BC ==
--- NOTE | 2018-08-27 15:05 | CT Report ---
Reason: SYNCOPE AND COLLAPSE Procedure Date: 08/27/2018 Accession Number: [id number] / [id number] Procedure: CT - Head W/O CPT Code: FULL RESULT: EXAM: CT HEAD WITHOUT CONTRAST EXAM DATE: 08/27/2018 12:24 PM. CLINICAL HISTORY: Syncope and collapse. COMPARISON: 10/05/2017. TECHNIQUE: Multiaxial CT images were obtained from the foramen magnum to the vertex. Reformats: Sagittal and coronal. IV contrast: None. In accordance with CT protocol optimization, one or more of the following dose reduction techniques were utilized for this exam: automated exposure control, adjustment of mA and/or KV based on patient size, or use of iterative reconstructive technique. FINDINGS: Parenchyma: No intraparenchymal hemorrhage. No evidence of mass, midline shift, or CT findings of infarction. Medrano-white differentiation is distinct. Hypodensities noted in the periventricular white matter consistent with microvascular ischemic change. Extraaxial Spaces: Prominent but normal for age consistent with aging appropriate atrophy. No subdural or epidural collections identified. Ventricles: Normal in size and position. Sinuses and Orbits: Imaged paranasal sinuses, orbits show no significant abnormality. 1 nonspecific air-fluid level is noted within the inferiormost air cell left mastoid. Bones: No evidence of fracture or calvarial defect. Other: None. IMPRESSION: 1. Aging related changes. No evidence of acute infarction, intracranial hemorrhage or abnormal extra-axial fluid collection. 2. Nonspecific mastoid air cell disease on the right. RADIA
== END 2018-08-27 11:12 | disposition home or self-care (01) ==
LOC: DI 11:11
PROVIDERS: ATTEND Internal Medicine
DX: I35.0 Nonrheumatic aortic (valve) stenosis (principal); R55 Syncope and collapse; I07.1 Rheumatic tricuspid insufficiency
CPT/HCPCS: 70450; 93306

== ENCOUNTER 2019-04-15 21:04 | Emergency (ER) | payer MEDICARE, BC ==
--- NOTE | 2019-04-15 21:55 | XRAY Report ---
Reason: pain and swelling s/p fall Procedure Date: 04/15/2019 Accession Number: [id number] / [id number] Procedure: XR - Wrist 4 View LT CPT Code: FULL RESULT: EXAM: LEFT WRIST RADIOGRAPHY EXAM DATE: 04/15/2019 09:32 PM. CLINICAL HISTORY: Pain and swelling s/p fall. COMPARISON: WRIST 4 VIEW LT 05/23/2017 10:24 AM. TECHNIQUE: 3 views. FINDINGS: Bones: An acute displaced transverse intra-articular fracture is seen through distal left radius with mild impaction between fracture fragments. No angulation. Joints: Radiocarpal joints are well aligned. Soft Tissues: Moderate soft tissue swelling is seen overlying the fracture site. IMPRESSION: An acute displaced transverse intra-articular fracture through distal left radius with mild impaction. RADIA
--- NOTE | 2019-04-16 00:43 | ED Physician Documentation ---
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 she is right hand dominant Review of Systems Skin: reports: Reviewed and negative Musculoskeletal: reports: Extremity pain, Joint pain, Extremity swelling, Joint swelling. 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 SYSTEMS: section - Present Medications Home Medications: Ambulatory Orders Medication Instructions Recorded Confirmed Docusate Sodium 100 mg PO DAILY 10/05/17 10/05/17 Fluoxetine HCl 20 mg PO DAILY 10/05/17 10/05/17 Gabapentin 600 mg PO PRN PRN 10/05/17 10/05/17 HYDROcod/ACETAM 5/325 [[place] 5/325] 1 tab PO DAILY PRN 10/05/17 10/05/17 Metoprolol Succinate 25 mg PO DAILY 10/05/17 10/05/17 [id number] [Cardizem] 30 mg PO TID 10/05/17 10/05/17 Carbidopa/Levodopa 1 tab PO BID 04/15/19 [Carbidopa-Levodopa 25-100 Tab] Metoprolol Succinate 25 mg PO DAILY 04/15/19 04/15/19 HYDROcod/ACETAM 5/325 [[place] 5/325] 1 ea PO Q6H PRN #15 tablet 04/16/19 - Allergies Allergies/Adverse Reactions: Allergies Allergy/AdvReac Type Severity Reaction Status Date / Time No Known Drug Allergies Allergy Verified 04/15/19 21:12 - Social History Does the pt smoke?: No Smoking Status: Never smoker Does the pt drink ETOH?: No Does the pt have substance abuse?: No - Immunizations Immunizations: Other immun current - POLST Patient has POLST: Yes PD ED PE NORMAL - Vitals Vital signs reviewed: Yes - General General: Alert and oriented X 3, No acute distress, Well developed/nourished - Neuro Neuro: No motor deficit, No sensory deficit PD ED PE EXPANDED - Extremities Extremities: Deformity, Tenderness, Limited ROM, Swelling, Left wrist Results - Vitals Vitals: Oxygen O2 Source Room air - Rads (name of study) left wrist xrays Radiology: Prelim report reviewed, See rad report Procedures - Splint (location) Upper extremity left Splint applied by: Tech Type of splint: Fiberglass, Sugar tong Other: Patient tolerated well, No complications, Neurovascular intact, Good alignment, Sling provided PD MEDICAL DECISION MAKING - ED course Complexity details: reviewed results, re-evaluated patient, considered differ ential, d/w patient, d/w family Departure - Departure Disposition: 01 Home, Self Care Clinical Impression: Wrist fracture Condition: Good Instructions: ED Sling, ED Splint Care Fiberglass, ED Fx Wrist General Follow-Up: Je Quiñones MD [Provider Admit Priv/Credential] - (3-5 days) Prescriptions: HYDROcod/ACETAM 5/325 [[place] 5/325] 1 ea PO Q6H PRN #15 tablet PRN Reason: Pain Discharge Date/Time: 04/16/19 01:33
[2019-04-16] MEDS ORDERED: HYDROcod/ACETAM 5/325 MG TABLET PO STA (00:58)
[2019-04-16 01:32] VITALS: BP 155/56
== END 2019-04-16 01:33 | disposition home or self-care (01) ==
LOC: ED 21:04
DX: S52.572A Other intraarticular fracture of lower end of left radius, initial encounter for closed fracture (principal); W01.0XXA Fall on same level from slipping, tripping and stumbling without subsequent striking against object, initial encounter; Y93.89 Activity, other specified; Y92.009 Unspecified place in unspecified non-institutional (private) residence as the place of occurrence of the external cause
CPT/HCPCS: 29125; 73110; 99283; A9270

== ENCOUNTER 2019-04-20 07:51 | Outpatient (CLI) | payer MEDICARE, BC | END 2019-04-20 07:52 | disposition EMS.NT | LOC: EMS 07:51 | PROVIDERS: ATTEND Surgery | DX: Z03.89 Encounter for observation for other suspected diseases and conditions ruled out (principal) ==

== ENCOUNTER 2019-04-25 03:07 | Outpatient (CLI) | payer MEDICARE, BC | END 2019-04-25 03:08 | disposition EMS.NT | LOC: EMS 03:07 | PROVIDERS: ATTEND Surgery | DX: Z03.89 Encounter for observation for other suspected diseases and conditions ruled out (principal) ==

== ENCOUNTER 2019-05-13 12:40 | Outpatient (CLI) | payer MEDICARE, BC | END 2019-05-13 12:41 | disposition critical access hospital (66) | LOC: EMS 12:40 | PROVIDERS: ATTEND Surgery | DX: R41.82 Altered mental status, unspecified (principal) | CPT/HCPCS: A0425; A0429 ==

== ENCOUNTER 2019-05-13 13:06 | Emergency (ER) | payer MEDICARE, BC ==
--- NOTE | 2019-05-13 13:22 | ED Physician Documentation ---
History of Present Illness - Stated complaint Stated Complaint: ALOC - Chief complaint Chief Complaint: Neuro - Additonal information Additional information: This is an 88-year-old female with history of atrial fibrillation and Parkinson's, who lives at [facility], who was brought in due to somnolence. History is provided by her daughter, as patient is poorly responsive. She was reportedly her normal self at 9 AM, and she was found around half hour ago in her home she was somnolent and difficult to arouse. It did not appear that she fell, it sounds like she was sitting when she was found and it is unclear what precipitated this change in her mental status. Her daughter did state that she fell within the last week, and she did have some mild headache, but she never received a CT scan of her head. She is on Vicodin occasionally, but her daughter states that she takes this only once a day at most, and does not think she received it today. She does take gabapentin for restless legs. Review of Systems Unable to obtain: Unresponsive PD PAST MEDICAL HISTORY - Past Medical History Past Medical History: Yes Cardiovascular: Atrial fibrillation Respiratory: None Neuro: None Endocrine/Autoimmune: None GI: None MICA PATCHER: None : None HEENT: None Psych: Depression Musculoskeletal: Osteoporosis Derm: None - Past Surgical History Past Surgical History: Yes Ortho: Knee replacement /MICA PATCHER: section - Present Medications Home Medications: Ambulatory Orders Medication Instructions Recorded Confirmed Docusate Sodium 100 mg PO DAILY 10/05/17 10/05/17 Fluoxetine HCl 20 mg PO DAILY 10/05/17 10/05/17 Gabapentin 600 mg PO PRN PRN 10/05/17 10/05/17 HYDROcod/ACETAM 5/325 [[place] 5/325] 1 tab PO DAILY PRN 10/05/17 10/05/17 Metoprolol Succinate 25 mg PO DAILY 10/05/17 10/05/17 [id number] [Cardizem] 30 mg PO TID 10/05/17 10/05/17 Carbidopa/Levodopa 1 tab PO BID 04/15/19 [Carbidopa-Levodopa 25-100 Tab] Metoprolol Succinate 25 mg PO DAILY 04/15/19 04/15/19 HYDROcod/ACETAM 5/325 [[place] 5/325] 1 ea PO Q6H PRN #15 tablet 04/16/19 - Allergies Allergies/Adverse Reactions: Allergies Allergy/AdvReac Type Severity Reaction Status Date / Time No Known Drug Allergies Allergy Verified 05/13/19 13:08 - Social History Does the pt smoke?: No Smoking Status: Never smoker Does the pt drink ETOH?: No Does the pt have substance abuse?: No - Immunizations Immunizations: Other immun current - POLST Patient has POLST: Yes PD ED PE NORMAL - Vitals Vital signs reviewed: Yes - General General: Other (Somnolent, When I open her eyes she does track, and with some repeated verbal stimuli she opens eyes and moves. She does not speak.) - HEENT HEENT: Atraumatic, PERRL, Other (Pupils 4mm and reactive bilaterally) - Neck Neck: Other (Atraumatic, no obvious tenderness, no step-offs.) - Cardiac Cardiac: Other (Irregularly irregular rhythm, regular rate.) - Respiratory Respiratory: No respiratory distress, Clear bilaterally - Abdomen Abdomen: Soft, Non tender, Non distended - Neuro Neuro: Other (Somnolent, when spoken to multiple times she opens her eyes and is able to wiggle her toes and follow basic commands. She opens her mouth. She does not speak, and she does not follow multistep commands. Unable to fully test motor function given her mental status, she does respond to noxious stimuli in all 4 extremities. No obvious facial droop, pupils are symmetric bilaterally) Results - Vitals Vitals: Vital Signs - 24 hr 05/13/19 05/13/19 05/13/19 13:08 13:15 15:15 Temperature 36.8 C Heart Rate 69 69 70 Respiratory 16 16 16 Rate Blood Pressure 135/49 H 135/49 H 147/66 H O2 Saturation 95 96 96 Oxygen O2 Source Room air - EKG (time done) 13:17 Other comments: Other comments (Rate 59, rhythm sinus bradycardia, there is a first-degree AV block, left ventricular hypertrophy by voltage criteria in aVL. There is Slight concave up and discordant ST segment elevation in V2 and V3 which is 1 mm, No other ST segment elevation.) - Labs Labs: Laboratory Tests 05/13/19 05/13/19 05/13/19 13:35 13:35 13:35 WBC 6.6 RBC 3.98 L Hgb 12.4 Hct 37.4 MCV 94.0 MCH 31.2 H MCHC 33.2 RDW 13.2 Plt Count 227 MPV 11.7 H Neut # (Auto) 3.0 Lymph # (Auto) 3.1 [place] # (Auto) 0.4 Eos # (Auto) 0.1 Baso # (Auto) 0.0 Absolute Nucleated RBC 0.00 Nucleated RBC % 0.0 PT 13.0 H INR 1.2 Sodium 143 Potassium 4.3 Chloride 102 Carbon Dioxide 31 Anion Gap 10.0 BUN 18 Creatinine 1.1 H Estimated GFR (MDRD) 47 L Glucose 122 H Calcium 9.6 Total Bilirubin 0.7 AST 26 ALT 13 Alkaline Phosphatase 79 Troponin I High Sens Total Protein 7.5 Albumin 3.9 Globulin 3.6 Albumin/Globulin Ratio 1.1 Lipase 24 TSH Urine Color Urine Clarity Urine pH Ur Specific [place] Urine Protein Urine Glucose (UA) Urine Ketones Urine Occult Blood Urine Nitrite Urine Bilirubin Urine Urobilinogen Ur Leukocyte Esterase Ur Microscopic Review Urine Culture Comments Ethyl Alcohol < 5.0 05/13/19 05/13/19 05/13/19 13:35 13:35 14:44 WBC RBC Hgb Hct MCV MCH MCHC RDW Plt Count MPV Neut # (Auto) Lymph # (Auto) [place] # (Auto) Eos # (Auto) Baso # (Auto) Absolute Nucleated RBC Nucleated RBC % PT INR Sodium Potassium Chloride Carbon Dioxide Anion Gap BUN Creatinine Estimated GFR (MDRD) Glucose Calcium Total Bilirubin AST ALT Alkaline Phosphatase Troponin I High Sens 11.7 Total Protein Albumin Globulin Albumin/Globulin Ratio Lipase TSH 2.14 Urine Color YELLOW Urine Clarity CLEAR Urine pH 7.0 Ur Specific [place] <=1.005 Urine Protein NEGATIVE Urine Glucose (UA) NEGATIVE Urine Ketones NEGATIVE Urine Occult Blood NEGATIVE Urine Nitrite NEGATIVE Urine Bilirubin NEGATIVE Urine Urobilinogen 1 (NORMAL) Ur Leukocyte Esterase NEGATIVE Ur Microscopic Review NOT INDICATED Urine Culture Comments NOT INDICATED Ethyl Alcohol - Rads (name of study) CXR Radiology: Other (No acute abnormality) CT head WO Radiology: Other (Age related changes without hemorrhage or fracture) PD MEDICAL DECISION MAKING - ED course Complexity details: considered differential (Intracranial hemorrhage, electrolyte abnormality, urinary tract infection, dysrhythmia, pneumonia, medication side effect, accidental overdose) ED course: Patient presents via EMS, she is very somnolent, but with repeated stimulation she opens her eyes and follows basic commands. She has no signs of asymmetries with her movement of her extremities. CT of her head was obtained which shows no acute intracranial abnormality. Her lycyh-be-vwld glucose in route was normal, labs are drawn and are unrevealing, urinalysis is negative for infection. After the CT scan she woke up and she is back to her baseline according to her daughter. Patient does not know what happened, and states that she was just a little sleepy. Now she has no neurologic deficits, is conversant, and has no complaints. Reviewing her medication list she is on gabapentin and Vicodin, I discussed with patient and her daughter that this combination may be causing her somnolence. It does not appear that she received the Vicodin recently, so this may be partially an effect of the gabapentin. I recommend that she follow-up with her primary care provider to review her medications, and that she avoid combining narcotic medications and sedating medications such as gabapentin in the meantime. Her primary care provider just recently left, they will try to establish with a new PCP, ideally a geriatric specialist if possible. Given that patient is very well-appearing and back to baseline at this time, I think she is safe for discharge, I discussed return precautions and asked that she return with any new or concerning symptoms. Patient and her daughter agreed and she was discharged home Departure - Departure Disposition: 01 Home, Self Care Clinical Impression: Somnolence Condition: Good Follow-Up: Your,PCP [Other] - Within 1 week (For follow up and medication review) Comments: You were seen today for being excessively sleepy, This may be a side effect of your medications. Please do not combine gabapentin and Vicodin, if possible do not take the Vicodin at all. Please follow-up with your primary care provider to review your medications, these may need to be changed to reduced, as the may be causing you to be more sleepy. If you develop any chest pain, headache, fever, or any worsening symptoms return to the emergency department. Discharge Date/Time: 05/13/19 15:41
[2019-05-13 13:46] LABS: BASOPHILS % (AUTO) 0.3 %; EOSINOPHILS # (AUTO) 0.1 10^3/uL (0.0-0.7); EOSINOPHILS % (AUTO) 1.7 %; HGB - HEMOGLOBIN 12.4 g/dL (12.0-16.0); LYMPHOCYTES # (AUTO) 3.1 10^3/uL (1.5-3.5); LYMPHOCYTES % (AUTO) 47.1 %; MEAN CORPUSCULAR HEMOGLOBIN 31.2 pg (27.0-31.0); MEAN CORPUSCULAR HGB CONC 33.2 g/dL (32.0-36.0); MEAN PLATELET VOLUME 11.7 fL (7.9-10.8); MONOCYTES # (AUTO) 0.4 10^3/uL (0.0-1.0); MONOCYTES % (AUTO) 5.4 %; NEUTROPHILS % (AUTO) 45.3 %; PLT - PLATELET COUNT 227 10^3/uL (130-450); RED BLOOD COUNT 3.98 10^6/uL (4.20-5.40); RED CELL DISTRIBUTION WIDTH 13.2 % (12.0-15.0); WHITE BLOOD COUNT 6.6 x10^3/uL (4.8-10.8)
--- NOTE | 2019-05-13 13:46 | XRAY Report ---
Reason: chest pain Procedure Date: 05/13/2019 Accession Number: [id number] / [id number] Procedure: XR - Chest 1 View X-Ray CPT Code: 16942 FULL RESULT: EXAM: CHEST RADIOGRAPHY EXAM DATE: 05/13/2019 01:36 PM. CLINICAL HISTORY: Chest pain. COMPARISON: CHEST 2 VIEW 03/16/2018 8:54 AM. TECHNIQUE: 1 view. FINDINGS: Lungs/Pleura: No focal consolidation. Low expansion with mild streaky left basilar atelectasis or scar. No pleural effusion. No pneumothorax. Mediastinum: Prominent cardiac silhouette. Other: None. IMPRESSION: No acute findings. RADIA
[2019-05-13 13:55] LABS: ALBUMIN 3.9 g/dL (3.2-5.5); ALBUMIN/GLOBULIN RATIO 1.1 (1.0-2.2); ALKALINE PHOSPHATASE 79 IU/L (42-121); ALT ALANINE AMINOTRANSFERASE 13 IU/L (10-60); AST ASPARTATE AMINOTRANSFERASE 26 IU/L (10-42); BILIRUBIN,TOTAL 0.7 mg/dL (0.2-1.0); BUN - BLOOD UREA NITROGEN 18 mg/dL (6-20); CALCIUM 9.6 mg/dL (8.5-10.3); CARBON DIOXIDE - CO2 31 mmol/L (21-32); CHLORIDE 102 mmol/L (101-111); CREATININE 1.1 mg/dL (0.4-1.0); GFR - MDRD 47 (>89); GLUCOSE 122 mg/dL (70-100); LIPASE 24 U/L (22-51); SODIUM 143 mmol/L (135-145); TOTAL PROTEIN 7.5 g/dL (6.7-8.2)
[2019-05-13 13:56] LABS: INR 1.2 (0.8-1.2)
--- NOTE | 2019-05-13 14:05 | CT Report ---
Reason: Somonlent, fall in last week Procedure Date: 05/13/2019 Accession Number: [id number] / [id number] Procedure: CT - HEAD WO CPT Code: FULL RESULT: EXAM: CT HEAD EXAM DATE: 05/13/2019 01:47 PM. CLINICAL HISTORY: Somnolent, fall in last week. COMPARISON: HEAD W/O 08/27/2018 12:14 PM. TECHNIQUE: Multiaxial CT images were obtained from the foramen magnum to the vertex. Reformats: Sagittal and coronal. IV contrast: None. In accordance with CT protocol optimization, one or more of the following dose reduction techniques were utilized for this exam: automated exposure control, adjustment of mA and/or KV based on patient size, or use of iterative reconstructive technique. FINDINGS: Parenchyma: No intraparenchymal hemorrhage. No evidence of mass, midline shift, or CT findings of infarction. Medrano-white differentiation is distinct. Periventricular white matter changes, consistent with chronic ischemic small vessel disease. Extraaxial Spaces: Normal for age. No subdural or epidural collections identified. Ventricles: Normal in size and position. Sinuses and Orbits: Imaged paranasal sinuses, orbits, and mastoids show no significant abnormality. Bones: No evidence of fracture or calvarial defect. Other: None. IMPRESSION: No acute intracranial hemorrhage or calvarial fracture identified. RADIA
[2019-05-13 14:52] LABS: BILIRUBIN,URINE NEGATIVE (NEGATIVE); GLUCOSE, URINE (UA) NEGATIVE (NEGATIVE); KETONES,URINE (UA) NEGATIVE (NEGATIVE); LEUKOCYTE ESTERASE, URINE NEGATIVE (NEGATIVE); NITRITE,URINE NEGATIVE (NEGATIVE); OCCULT BLOOD,URINE NEGATIVE (NEGATIVE); PROTEIN,URINE NEGATIVE (NEGATIVE); UROBILINOGEN,URINE 1 (NORMAL) E.U./dL (NORMAL)
[2019-05-13 14:53] LABS: CLARITY,URINE CLEAR (CLEAR)
[2019-05-13 15:17] VITALS: BP 147/66
== END 2019-05-13 15:41 | disposition home or self-care (01) ==
LOC: EDUNIT# → ED 13:06
DX: R40.0 Somnolence (principal); R00.1 Bradycardia, unspecified; I44.0 Atrioventricular block, first degree; G20 Parkinson's disease; G25.81 Restless legs syndrome
CPT/HCPCS: 36415; 70450; 71045; 80053; 80320; 81001; 81003; 83690; 84443; 84484; 85025; 85610; 87086; 93005; 99281; 99284